=== PATIENT | female | born 2000 | race Caucasian/White ===

== ENCOUNTER 2022-07-01 07:30 | Outpatient (RCR) | payer BC, SELFPAY | END 2022-07-01 09:02 | disposition home or self-care (01) | PROVIDERS: PCP Nurse Practitioner Family; Visit Provider Nurse Practitioner Family | DX: S73.199D Other sprain of unspecified hip, subsequent encounter (principal); Z51.89 Encounter for other specified aftercare | CPT/HCPCS: 97110; 97112; 97140; 97161 ==